=== PATIENT | female | born 1990 | race Caucasian/White ===

== ENCOUNTER 2021-01-27 19:06 | Emergency (ER) | payer BC ==
[~2021-01-27] VITALS: Ht 165.1 cm; Wt 65.3 kg
[2021-01-27 19:15] VITALS: BP_SYST 127
--- NOTE | 2021-01-27 19:23 | NUR ---
Patient to ER bed 4 to gown for evaluation. Side rails up. Report given to Kirit W[place].
--- NOTE | 2021-01-27 19:40 | NUR ---
DR RIVERA IN TO ASSESS
--- NOTE | 2021-01-27 19:57 | NUR ---
RECEIVED AND IN RROM, FAMILY AT BEDSIDE, NO DISTRESS, RESP UNLABORED, SKIN WARM AND DRY
[2021-01-27 20:09] LABS: HEMATOCRIT 36.6 % (36-48); HEMOGLOBIN 12.5 g/dL (12.0-16.0); MEAN CORPUSCULAR HEMOGLOBIN 32 pg (27-31); MEAN CORPUSCULAR HGB CONC 34 % (32-36); MEAN CORPUSCULAR VOLUME 94 fL (79.0-98.0); PLATELET COUNT (AUTO) 259 K/uL (130-430); RED BLOOD CELL COUNT(AUTO) 3.89 MIL/uL (4.2-6.2); RED CELL DISTRIBUTION WIDTH 12.5 % (9.0-15.0); WHITE BLOOD COUNT (AUTO) 21.6 K/uL (4.8-10.8)
[2021-01-27 20:10] LABS: BILIRUBIN,URINE NEGATIVE (NEGATIVE); BLOOD, URINE 2+ (NEGATIVE); CLARITY/URINE CLEAR (CLEAR); COLOR,URINE YELLOW (YELLOW); GLUCOSE,URINE NEGATIVE (NEGATIVE); KETONES,URINE NEGATIVE (NEGATIVE); LEUKOCYTE ESTERASE ,URINE 2+ (NEGATIVE); NITRITE, URINE NEGATIVE (NEGATIVE); PH,URINE 6.5 (5.0-8.0); PROTEIN URINE NEGATIVE (NEGATIVE); UROBILINOGEN,URINE 0.2 (0.2-1.0)
--- NOTE | 2021-01-27 20:10 | NUR ---
BACK FROM CT , TOLERATED WELL. PT CALM, ALERT, C/O FLANK PAIN, DENIES CP/SOB
[2021-01-27] MEDS ORDERED: KETOROLAC TROMETHAMINE 60 MG/2 ML VIAL IM ONE (20:15)
[2021-01-27 20:21] LABS: CALCIUM 9.1 mg/dL (8.4-11.0); CREATININE 0.52 mg/dL (0.55-1.30)
[2021-01-27 20:23] LABS: BAND % (MANUAL) 9 % (0-6); BASOPHILS % (MANUAL) 0 % (0-2); EOSINOPHILS % (MANUAL) 0 % (0-7); LYMPHOCYTES % (MANUAL) 3 % (20-46); MONOCYTES % (MANUAL) 3 % (0-11)
[2021-01-27 20:26] LABS: C-REACTIVE PROTEIN QUANT 9.5 mg/dL (0-0.5)
[2021-01-27] MEDS ORDERED: HYDROcodone/ACETAMIN 10-325 MG TAB PO ONE (20:30)
[2021-01-27 20:40] LABS: INR 1.1 (0.8-1.2); PROTHROMBIN TIME 11.5 SECS (9.5-12.5)
[2021-01-27 20:43] LABS: ALBUMIN 3.7 g/dL (3.4-4.8); TOTAL BILIRUBIN 0.4 mg/dL (0.0-1.0)
[2021-01-27 20:53] LABS: BACTERIA,URINE MODERATE /HPF (None Seen); RBC,URINE 0-3 /HPF (0-3)
[2021-01-27] MEDS ORDERED: HYDR-3917 PO (20:58)
[2021-01-27] MEDS ORDERED: NITR-85 PO (20:58)
[2021-01-27] MEDS ORDERED: MORPHINE 4 MG INJ. 4 MG/ML VIAL IVP ONE (21:00)
[2021-01-27] MEDS ORDERED: cefTRIAXone 1 GM in D5W 50 ML IV ONE (21:00)
[2021-01-27] MEDS ORDERED: ONDANSETRON HCL 4 MG/2 ML VIAL IVP ONE (21:00)
[2021-01-27] MEDS ORDERED: cefTRIAXone 1 GM VIAL ONE (21:40)
[2021-01-27] MEDS ORDERED: ONDANSETRON HCL 4 MG/2 ML VIAL ONE (21:41)
[2021-01-27 21:53] VITALS: BP_SYST 121
--- NOTE | 2021-01-27 21:54 | NUR ---
Patient given written and verbal discharge instructions and verbalizes understanding. ER MD discussed with patient the results and treatment provided. Patient in stable condition. ID arm band removed. IV catheter removed intact and dressing applied, no active bleeding. Rx of NORCO, MACROBID given. Patient educated on pain management and to follow up with PMD. Pain Scale 1/10 Opportunity for questions provided and answered. Medication side effect fact sheet provided.
== END 2021-01-27 21:53 | disposition home or self-care (01) ==
LOC: SED 19:06
DX: N28.1 Cyst of kidney, acquired (principal); Z79.899 Other long term (current) drug therapy
CPT/HCPCS: 36415; 74176; 76376; 80053; 81000; 81025; 82150; 83605; 83690; 84703; 85007; 85027; 85610; 85730; 86140; 87040; 87086; 96372; 96374; 96375; 99285; J0696; J1885; J2270; J2405